=== PATIENT | female | born 2000 ===

== ENCOUNTER 2018-03-25 15:43 | Emergency (ER) | payer SELFPAY ==
[2018-03-25 16:02] VITALS: BMI 30.7
[2018-03-25 16:05] VITALS: TEMP 98.4
--- NOTE | 2018-03-25 16:43 | ED PDOC ---
Arrival/HPI - General Chief Complaint: Abdominal Pain Time Seen by Provider: 03/25/18 15:47 Historian: Patient - History of Present Illness Narrative History of Present Illness (Text): 03/25/18 16:40 18-year-old female presents to the emergency room complaining of mild intermittent crampy lower abdominal pain with mild vaginal bleeding for the past 3 days. Of note patient states that she is 11 weeks , she is . Oth erwise reports no heavy bleeding, clots, fever, chills, nausea, vomiting, urinary symptoms, back pain. Past Medical History - Infectious Disease Hx of Infectious Diseases: None - Psychiatric Hx Substance Use: No Family/Social History Family/Social History: No Known Family HX Smoking Status: Never Smoked Hx Alcohol Use: No Hx Substance Use: No Allergies/Home Meds Allergies/Adverse Reactions: Allergies No Known Allergies Allergy (Verified 03/25/18 16:01) Home Medications: Home Meds Medication Instructions Recorded Confirmed Docosahexanoic Acid [ Dha] 200 mg PO DAILY 03/25/18 03/25/18 Pnv No.121/Iron/Folic Acid 1 tab PO DAILY 03/25/18 03/25/18 [ Multivitamin Tablet] Review of Systems - Review of Systems Constitutional: absent: Fatigue, Fevers Cardiovascular: absent: Chest Pain, Palpitations Gastrointestinal: Abdominal Pain, Nausea. absent: Diarrhea, Vomiting Genitourinary Female: Vaginal Bleeding. absent: Dysuria, Frequency, Vaginal Discharge Musculoskeletal: absent: Arthralgias, Back Pain, Neck Pain Skin: absent: Rash, Pruritis Neurological: absent: Headache, Dizziness Physical Exam - Physical Exam Narrative Physical Exam (Text): 03/25/18 16:42 GENERAL APPEARANCE: Patient is awake, alert, oriented x 3, in no acute distress. SKIN: Warm, dry; (-) cyanosis. EYES: (-) conjunctival pallor, (-) scleral icterus. ENMT: Mucous membranes moist. NECK: (-) tenderness, (-) stiffness, (-) lymphadenopathy. CHEST AND RESPIRATORY: (-) rales, (-) rhonchi, (-) wheezes; breath sounds equal bilaterally. HEART AND CARDIOVASCULAR: (-) irregularity; (-) murmur, (-) gallop. ABDOMEN AND GI: (-) distention. Bowel sounds active; (-) tenderness, (-) guarding, (-) rebound, (-) palpable masses, (-) CVA tenderness. EXTREMITIES: (-) deformity, (-) edema, (+) distal pulses. NEURO AND PSYCH: Mental status as above; (-) focal findings. Vital Signs Temp Pulse Resp BP Pulse Ox 03/25/18 16:03 98.4 F 83 19 104/72 99 Medical Decision Making ED Course and Treatment: 03/25/18 16:42 Plan : - Labs - Urinalysis - US TV - [facility] [place] : beta quant 7,609, blood type O+ US TV : Findings: The uterus measures approximately 9.6 x 7.5 x 8.4 cm. Anteverted. Cervix length measures approximately 3.7 cm. Irregular-appearing gestational sac measures 2.9 cm and is compatible with a gestational age of 7 weeks 5 days. No evidence of yolk sac. Echogenic focus measuring approximately 0.3 cm, possibly pole, which would be consistent with gestational age 6 weeks 0 days. No evidence of heart rate. 0.5 x 1.0 cm suspected subchorionic hemorrhage. The right ovary measures 2.9 x 1.6 x 3.3 cm. The left ovary measures 3.1 x 1.8 x 2.1 cm. Blood flow was demonstrated to both ovaries. Impression: Irregular-appearing gestational sac measures 2.9 cm and is compatible with a gestational age of 7 weeks 5 days. No evidence of yolk sac. Echogenic focus measuring approximately 0.3 cm, possibly pole, which would be consistent with gestational age 6 weeks 0 days. No evidence of heart rate. Recommend clinical correlation and [employer]BER consultation with follow-up as indicated. 0.5 x 1.0 cm suspected subchorionic hemorrhage. On reevaluation, patient reports improvement of symptoms, denies any heavy vaginal bleeding or abdominal pain. On exam, patient remains awake alert and oriented 3 in no acute distress. Lab and US results discussed with the patient. Advised to follow up with OB in 2 days without fail for re-evaluation and to repeat beta quant. Advised that she will need a repeat outpatient US, advised to continue taking vitamins.Return to the emergency room at any time for any new or worsening symptoms. Patient states she fully agrees with and understands discharge instructions. States that she agrees with the plan and disposition. Verbalized and repeated discharge instructions and plan. I have given the patient opportunity to ask any additional questions. - RAD Interpretation Radiology Orders: 03/25/18 16:38 TRANSVAGINAL [US] Stat - PA / LIVING SKILLS ADVISOR / Resident Statement MD/DO has reviewed & agrees with the documentation as recorded. Disposition/Present on Arrival - Present on Arrival Any Indicators Present on Arrival: No History of DVT/PE: No History of Uncontrolled Diabetes: No Urinary Catheter: No History of Decub. Ulcer: No History Surgical Site Infection Following: None - Disposition Have Diagnosis and Disposition been Completed?: Yes Diagnosis: Threatened Disposition: HOME/ ROUTINE Disposition Time: 18:45 Patient Plan: Discharge Condition: STABLE Discharge Instructions (ExitCare): Threatened Miscarriage (DC), Bleeding With (DC) Additional Instructions: Thank you for letting us take care of you today. You were treated for threatened miscarriage, bleeding with . The emergency medical care you received today was directed at your acute symptoms. If you were prescribed any medication, please fill it and take as directed. It may take several days for your symptoms to resolve. Return to the Emergency Department if your symptoms worsen, do not improve, or if you have any other problems. Please contact an OB doctor in 2 days for re-evaluation and follow up, as well as for a repeat outpatient beta quantitative and US. Bring any paperwork you were given at discharge with you along with any medications you are taking to your follow up visit. Our treatment cannot replace ongoing medical care by a primary care provider (PCP) outside of the emergency department. Thank you for allowing the [facility] team to be part of your care today. If you had a US: A Radiologist will review the ED reading if any change in treatment is needed we will contact you. If you had a urine culture: It will take several days for the results, if any change in treatment is needed we will contact you. US transvaginal results : Irregular-appearing gestational sac measures 2.9 cm and is compatible with a gestational age of 7 weeks 5 days. No evidence of yolk sac. Echogenic focus measuring approximately 0.3 cm, possibly pole, which would be consistent with gestational age 6 weeks 0 days. No evidence of heart rate. Recommend clinical correlation and [employer]BER consultation with follow-up as indicated. 0.5 x 1.0 cm suspected subchorionic hemorrhage. Referrals: [facility] [Outside] - Follow up with primary [facility] [Outside] - [facility] with [facility] [Outside] - Follow up with primary PCP,NO [Primary Care Provider] - Follow up with primary Forms: [employer] ([place]), WORK NOTE
[2018-03-25 17:00] LABS: URINE BILIRUBIN NEGATIVE (NEGATIVE); URINE BLOOD SMALL (NEGATIVE); URINE GLUCOSE (UA) NEGATIVE (NEGATIVE); URINE LEUKOCYTE ESTERASE NEGATIVE Leu/uL (NEGATIVE); URINE PROTEIN NEGATIVE mg/dL (<30 mg/dL); URINE UROBILINOGEN 0.2 E.U./dL (<1 E.U./dL)
[2018-03-25 17:02] LABS: URINE APPEARANCE CLEAR (CLEAR); URINE COLOR YELLOW (YELLOW)
[2018-03-25 17:05] LABS: URINE BACTERIA TRACE /hpf; URINE RBC 15 - 20 /hpf (0-2)
[2018-03-25 17:29] LABS: BASO # 0.03 K/mm3 (0.0-2.0); BASO % 0.4 % (0.0-3.0); EOS # 0.7 (0.0-0.7); EOS % 8.7 % (1.5-5.0); GRAN # 5.08 (1.4-6.5); GRAN % 60.7 % (50.0-68.0); HEMOGLOBIN 12.2 g/dL (12.0-16.0); LYMPH # 1.9 (1.2-3.4); LYMPH % 22.7 % (22.0-35.0); MEAN CELL VOLUME 79.2 fl (80.0-105.0); MEAN CORPUSCULAR HEMOGLOBIN 26.8 pg (25.0-35.0); MEAN CORPUSCULAR HGB CONC 33.8 g/dl (31.0-37.0); MEAN PLATELET VOLUME 10.6 fl (7.0-11.0); MONO # 0.6 (0.1-0.6); MONO % 7.5 % (1.0-6.0); RBC 4.56 10^6/uL (3.5-6.1); RED CELL DISTRIBUTION WIDTH 14.4 % (11.5-14.5); WHITE BLOOD COUNT 8.4 10^3/uL (4.5-11.0)
[2018-03-25 17:40] LABS: ALB/GLOB RATIO 1.1 (1.1-1.8); ALBUMIN 4.3 g/dL (3.0-4.8); ALT/SGPT 15 U/L (7-56); AST/SGOT 19 U/L (14-36); BLOOD UREA NITROGEN 9 mg/dL (7-21); CALCIUM 9.3 mg/dL (8.4-10.5); GFR NON-AFRICAN AMERICAN > 60
--- NOTE | 2018-03-25 18:38 | US ---
Indication: abd pain, bleeding, 11 wks based on LMP Comparison: None available Technique: Transvaginal pelvic ultrasound Findings: The uterus measures approximately 9.6 x 7.5 x 8.4 cm. Anteverted. Cervix length measures approximately 3.7 cm. Irregular-appearing gestational sac measures 2.9 cm and is compatible with a gestational age of 7 weeks 5 days. No evidence of yolk sac. Echogenic focus measuring approximately 0.3 cm, possibly pole, which would be consistent with gestational age 6 weeks 0 days. No evidence of heart rate. 0.5 x 1.0 cm suspected subchorionic hemorrhage. The right ovary measures 2.9 x 1.6 x 3.3 cm. The left ovary measures 3.1 x 1.8 x 2.1 cm. Blood flow was demonstrated to both ovaries. Impression: Irregular-appearing gestational sac measures 2.9 cm and is compatible with a gestational age of 7 weeks 5 days. No evidence of yolk sac. Echogenic focus measuring approximately 0.3 cm, possibly pole, which would be consistent with gestational age 6 weeks 0 days. No evidence of heart rate. Recommend clinical correlation and J[employer]INE PRESSER consultation with follow-up as indicated. 0.5 x 1.0 cm suspected subchorionic hemorrhage.
[2018-03-25 19:17] VITALS: BP 105/73; PULSE 98; RESP 17; O2SAT 98
== END 2018-03-25 19:15 | disposition home or self-care (01) ==
LOC: ED 15:43
DX: O20.0 Threatened abortion (principal); Z3A.01 Less than 8 weeks gestation of pregnancy

== ENCOUNTER 2018-03-27 03:09 | Emergency (ER) | payer SELFPAY ==
[2018-03-27 07:52] LABS: ALB/GLOB RATIO 1.2 (1.1-1.8); ALBUMIN 4.2 g/dL (3.0-4.8); ALT/SGPT 21 U/L (7-56); AST/SGOT 20 U/L (14-36); BLOOD UREA NITROGEN 7 mg/dL (7-21); CALCIUM 9.3 mg/dL (8.4-10.5); GFR NON-AFRICAN AMERICAN > 60
[2018-03-27 07:59] LABS: HEMOGLOBIN 12.3 g/dL (12.0-16.0); MEAN CELL VOLUME 79.3 fl (80.0-105.0); MEAN CORPUSCULAR HEMOGLOBIN 26.9 pg (25.0-35.0); MEAN CORPUSCULAR HGB CONC 33.9 g/dl (31.0-37.0); MEAN PLATELET VOLUME 10.2 fl (7.0-11.0); RBC 4.58 10^6/uL (3.5-6.1); RED CELL DISTRIBUTION WIDTH 14.2 % (11.5-14.5); WHITE BLOOD COUNT 10.1 10^3/uL (4.5-11.0)
[2018-03-27 08:08] LABS: URINE BILIRUBIN SMALL (NEGATIVE); URINE BLOOD LARGE (NEGATIVE); URINE GLUCOSE (UA) NEGATIVE (NEGATIVE); URINE LEUKOCYTE ESTERASE TRACE Leu/uL (NEGATIVE); URINE PROTEIN 100 mg/dL (<30 mg/dL); URINE UROBILINOGEN 0.2 E.U./dL (<1 E.U./dL)
[2018-03-27 08:09] LABS: URINE APPEARANCE CLOUDY (CLEAR); URINE COLOR LIGHT RED (YELLOW)
[2018-03-27 08:11] LABS: URINE BACTERIA FEW /hpf; URINE EPITHELIAL CELLS 0 - 2 /hpf (0-5); URINE RBC TNTC /hpf (0-2); URINE WBC 0 - 2 /hpf (0-6)
--- NOTE | 2018-03-27 10:09 | US ---
Date of service: 03/27/2018 HISTORY: BLEEDING/ ASSESS CERVIX LMP 12/31/2017. By dates unexpected gestation of 12 weeks 2 days is noted. COMPARISON: 03/25/2018 TECHNIQUE: Transvaginal FINDINGS: UTERUS: Measures 10.3 x 5.6 x 5.7 cm. Uterus is anteverted. There is heterogeneous partly cystic complex fluid like material in the intrauterine cavity bordered by a thickened endometrium. Given the prior reference of an irregular-appearing gestational sac-a missed or in progress is a consideration. I am not aware of any previously read demonstrated viable intrauterine gestation. Currently no embryonic pole is seen. This complex appearing cystic collection is in the fundus.- No normal-appearing gestational sac no normal yolk sac. No normal appearing embryonic pole noted. ENDOMETRIUM: Grossly abnormal. At minimum 2.6 cm thickness. CERVIX: There is endocervical fluid also present. RIGHT OVARY: Measures 3.2 x 1.4 x 2 point cm. No solid mass. Normal flow. 2.8 x 2.0 x 3.2 LEFT OVARY: Measures cm. No solid mass. Normal flow. FREE FLUID: No significant free fluid noted. OTHER FINDINGS: None. IMPRESSION: No normal intrauterine gestation identified. The complex cystic collection in the intrauterine cavity with surrounding thickened endometrium is compatible with a missed or a in progress. The fluid component of this complex collection is decreased since the prior exam. The position is not significantly changed in the fundal intrauterine cavity. Correlation with beta HCG levels is advised. And as before, correlation with prior format proofreader consult is advised. Concordant results (preliminary interpretation) provided by susan.
== END 2018-03-27 06:03 | disposition home or self-care (01) ==
LOC: ED 03:09
DX: O03.9 Complete or unspecified spontaneous abortion without complication (principal)